=== PATIENT | female | born 1960 | race African-American/Black ===

== ENCOUNTER 2017-04-05 06:10 | Day surgery (SDC) | payer OTHER ==
[2017-04-05] MEDS ORDERED: MIDAZOLAM 1 MG/ML 2 ML INJ ×3 (08:23)
[2017-04-05] MEDS ORDERED: FENTAnyl 50 MCG/ML VIAL (08:23)
== END 2017-04-05 09:50 | disposition home or self-care (01) ==
LOC: GIL 06:10
DX: Z12.11 Encounter for screening for malignant neoplasm of colon (principal); K64.8 Other hemorrhoids; I10 Essential (primary) hypertension
CPT/HCPCS: 45378